=== PATIENT | male | born 1960 | race Two or more races ===

== ENCOUNTER 2021-12-27 16:44 | Outpatient (CLI) | payer OTHER | END 2021-12-27 16:51 | disposition home or self-care (01) | LOC: LAB 16:44 | PROVIDERS: ATTEND Urology | DX: R97.20 Elevated prostate specific antigen [PSA] (principal) ==

== ENCOUNTER 2022-02-08 08:11 | Outpatient (CLI) | payer OTHER | END 2022-02-08 08:12 | disposition home or self-care (01) | LOC: LAB 08:11 | DX: N18.31 Chronic kidney disease, stage 3a (principal); N25.81 Secondary hyperparathyroidism of renal origin; E55.9 Vitamin D deficiency, unspecified; E11.22 Type 2 diabetes mellitus with diabetic chronic kidney disease; R80.1 Persistent proteinuria, unspecified ==

== ENCOUNTER → 2022-02-08 | Outpatient (CLI) | payer OTHER | END | disposition home or self-care (01) | LOC: SONOGRAMA 10:07 | DX: N18.31 Chronic kidney disease, stage 3a (principal) ==

== ENCOUNTER 2022-02-27 06:52 | Outpatient (CLI) | payer OTHER | END 2022-02-27 06:54 | disposition home or self-care (01) | LOC: LAB 06:52 | DX: R97.20 Elevated prostate specific antigen [PSA] (principal); N40.1 Benign prostatic hyperplasia with lower urinary tract symptoms; N52.9 Male erectile dysfunction, unspecified ==

== ENCOUNTER → 2022-03-24 08:28 | Outpatient (CLI) | payer OTHER | END | disposition home or self-care (01) | LOC: LAB 08:28 | PROVIDERS: ATTEND Radiology Diagnostic Radiology | DX: R10.10 Upper abdominal pain, unspecified (principal) ==

== ENCOUNTER 2022-03-27 07:41 | Outpatient (CLI) | payer OTHER | END 2022-03-27 07:56 | disposition home or self-care (01) | LOC: TOM 07:41 | DX: R97.20 Elevated prostate specific antigen [PSA] (principal); N40.1 Benign prostatic hyperplasia with lower urinary tract symptoms; N52.9 Male erectile dysfunction, unspecified ==

== ENCOUNTER 2022-05-18 07:03 | Outpatient (CLI) | payer OTHER | END 2022-05-18 07:04 | disposition home or self-care (01) | LOC: LAB 07:03 | DX: R97.20 Elevated prostate specific antigen [PSA] (principal) ==

== ENCOUNTER 2022-07-28 06:56 | Outpatient (CLI) | payer OTHER | END 2022-07-28 07:01 | disposition home or self-care (01) | LOC: LAB 06:56 | DX: N18.1 Chronic kidney disease, stage 1 (principal); R80.9 Proteinuria, unspecified ==

== ENCOUNTER 2022-10-05 06:18 | Outpatient (CLI) | payer OTHER | END 2022-10-05 06:25 | disposition home or self-care (01) | LOC: LAB 06:18 | PROVIDERS: ATTEND General Practice | DX: E03.9 Hypothyroidism, unspecified (principal); I10 Essential (primary) hypertension; E78.2 Mixed hyperlipidemia; D40.0 Neoplasm of uncertain behavior of prostate ==

== ENCOUNTER 2022-12-19 06:28 | Outpatient (CLI) | payer OTHER ==
[2022-12-19 07:25] LABS: URINE APPEARANCE Clear; URINE BILIRRUBIN Negative (NEGATIVE); URINE BLOOD Negative; URINE COLOR Yellow; URINE GLUCOSE Negative (NEGATIVE); URINE LEUKOCYTE Negative; URINE NITRATE Negative; URINE PROTEIN Negative (NEGATIVE); URINE UROBILINOGEN 0.2 E.U./dl
[2022-12-19 07:28] LABS: URINE EPITHELIAL CELLS 2.6 uL (0.0-38.8); URINE WBC 4.1 uL (0.0-23.2)
[2022-12-19 08:11] LABS: URINE BACTERIA 2.5 uL (0.0-1933); URINE RBC 0.4 uL (0.0-20.8)
== END 2022-12-19 06:29 | disposition home or self-care (01) ==
LOC: LAB 06:28
DX: N18.2 Chronic kidney disease, stage 2 (mild) (principal); R80.1 Persistent proteinuria, unspecified

== ENCOUNTER 2023-03-20 06:15 | Outpatient (CLI) | payer OTHER ==
[2023-03-20 07:12] LABS: HEMATOCRIT 40.6 % (39.0-48.0); HEMOGLOBIN 13.4 g/dL (13-16.00); MEAN CELL VOLUME 77.6 fL (80.0-100.00); MEAN CORPUSCULAR HEMOGLOBIN 25.6 pg (27.00-32.0); PLATELET COUNT 168 K/uL (150-450); RED BLOOD COUNT 5.23 M/uL (4.00-6.00); RED CELL DISTRIBUTION WIDTH 14.5 % (11.5-14.5)
[2023-03-20 07:13] LABS: PH,URINE 5.5 (5.0-8.0); URINE APPEARANCE Clear; URINE BILIRRUBIN Negative (NEGATIVE); URINE BLOOD Negative; URINE COLOR Yellow; URINE GLUCOSE Negative (NEGATIVE); URINE LEUKOCYTE Negative; URINE NITRATE Negative; URINE PROTEIN Negative (NEGATIVE); URINE UROBILINOGEN 0.2 E.U./dl
[2023-03-20 07:17] LABS: URINE BACTERIA 6.2 uL (0.0-1933); URINE WBC 1.9 uL (0.0-23.2)
[2023-03-20 07:25] LABS: URINE EPITHELIAL CELLS 0.6 uL (0.0-38.8); URINE RBC 0.8 uL (0.0-20.8)
[2023-03-20 07:47] LABS: ALBUMIN 3.7 gm/dL (3.4-5.0); BILIRUBIN TOTAL 0.36 mg/dL (0.3-1.2); CALCIUM 8.8 mg/dL (8.5-10.1); CHOL HDL RATIO 2.9 (0-5.0); CREATININE SERUM 0.99 mg/dL (0.70-1.30); GFR 75.87; GLOBULINA 3.4 G/DL (2.4-3.5); POTASSIUM 3.8 mEq/L (3.5-5.1); TOTAL PROTEIN 7.1 gm/dL (6.4-8.2); TSH 2.49 uIU/mL (0.358-3.74)
[2023-03-20 07:49] LABS: PROSTATIC SPECIFIC ANTIGEN 15.6 NG/ML (0.010-4.00)
== END 2023-03-20 13:02 | disposition home or self-care (01) ==
LOC: LAB 06:15
PROVIDERS: ATTEND General Practice
DX: E03.9 Hypothyroidism, unspecified (principal); I10 Essential (primary) hypertension; Z12.10 Encounter for screening for malignant neoplasm of intestinal tract, unspecified; N39.0 Urinary tract infection, site not specified; E11.9 Type 2 diabetes mellitus without complications; E78.5 Hyperlipidemia, unspecified; C61 Malignant neoplasm of prostate

== ENCOUNTER 2023-03-21 06:52 | Outpatient (CLI) | payer OTHER ==
[2023-03-21 13:19] LABS: ob NEGATIVE (NEGATIVE)
== END 2023-03-21 06:53 | disposition home or self-care (01) ==
LOC: LAB 06:52
PROVIDERS: ATTEND General Practice
DX: E03.9 Hypothyroidism, unspecified (principal); I10 Essential (primary) hypertension; Z12.10 Encounter for screening for malignant neoplasm of intestinal tract, unspecified; N39.0 Urinary tract infection, site not specified; E11.9 Type 2 diabetes mellitus without complications; E78.5 Hyperlipidemia, unspecified; C61 Malignant neoplasm of prostate

== ENCOUNTER 2023-10-05 06:45 | Outpatient (CLI) | payer OTHER | END 2023-10-05 06:50 | disposition home or self-care (01) | LOC: LAB 06:45 | PROVIDERS: ATTEND General Practice | DX: C61 Malignant neoplasm of prostate (principal) ==

== ENCOUNTER 2023-12-24 06:27 | Outpatient (CLI) | payer OTHER ==
[2023-12-24 07:17] LABS: HEMOGLOBIN 13.3 g/dL (13-16.00); MEAN CELL VOLUME 79.8 fL (80.0-100.00); MEAN CORPUSCULAR HEMOGLOBIN 25.8 pg (27.00-32.0); MEAN CORPUSCULAR HGB CONC 32.4 g/dl (32.0-36.0); PLATELET COUNT 162 K/uL (150-450); RED BLOOD COUNT 5.14 M/uL (4.00-6.00); RED CELL DISTRIBUTION WIDTH 13.9 % (11.5-14.5)
[2023-12-24 07:20] LABS: PH,URINE 5.5 (5.0-8.0); URINE APPEARANCE Clear; URINE BILIRRUBIN Negative (NEGATIVE); URINE BLOOD Negative; URINE COLOR Yellow; URINE GLUCOSE Negative (NEGATIVE); URINE KETONE Trace (NEGATIVE); URINE LEUKOCYTE Negative; URINE NITRATE Negative; URINE PROTEIN 30 (NEGATIVE); URINE UROBILINOGEN 0.2 E.U./dl
[2023-12-24 07:24] LABS: URINE BACTERIA 11.3 uL (0.0-1933); URINE EPITHELIAL CELLS 3.8 uL (0.0-38.8)
[2023-12-24 08:32] LABS: ALBUMIN 3.7 gm/dL (3.4-5.0); BILIRUBIN TOTAL 0.77 mg/dL (0.3-1.2); CREATININE SERUM 0.86 mg/dL (0.70-1.30); GFR 89.25; GLOBULINA 3.5 G/DL (2.4-3.5); POTASSIUM 3.55 mEq/L (3.5-5.1); TOTAL PROTEIN 7.2 gm/dL (6.4-8.2); TSH 3.2 uIU/mL (0.358-3.74)
[2023-12-24 08:40] LABS: PROSTATIC SPECIFIC ANTIGEN 17.1 NG/ML (0.010-4.00)
== END 2023-12-24 06:33 | disposition home or self-care (01) ==
LOC: LAB 06:27
DX: C61 Malignant neoplasm of prostate (principal); I10 Essential (primary) hypertension; E03.9 Hypothyroidism, unspecified; D50.9 Iron deficiency anemia, unspecified; R63.4 Abnormal weight loss

== ENCOUNTER 2024-06-03 06:13 | Outpatient (CLI) | payer OTHER ==
[2024-06-03 07:00] LABS: HEMATOCRIT 41.9 % (39.0-48.0); HEMOGLOBIN 13.3 g/dL (13-16.00); MEAN CELL VOLUME 79.8 fL (80.0-100.00); MEAN CORPUSCULAR HEMOGLOBIN 25.4 pg (27.00-32.0); MEAN CORPUSCULAR HGB CONC 31.8 g/dl (32.0-36.0); PLATELET COUNT 131 K/uL (150-450); RED BLOOD COUNT 5.25 M/uL (4.00-6.00); RED CELL DISTRIBUTION WIDTH 14.2 % (11.5-14.5)
[2024-06-03 07:04] LABS: PH,URINE 6.5 (5.0-8.0); URINE APPEARANCE Clear; URINE BILIRRUBIN Negative (NEGATIVE); URINE BLOOD Negative; URINE COLOR Yellow; URINE GLUCOSE Negative (NEGATIVE); URINE KETONE Negative (NEGATIVE); URINE LEUKOCYTE Negative; URINE NITRATE Negative; URINE PROTEIN Negative (NEGATIVE); URINE UROBILINOGEN 0.2 E.U./dl
[2024-06-03 07:05] LABS: URINE EPITHELIAL CELLS 1.8 uL (0.0-38.8); URINE RBC 2.6 uL (0.0-20.8); URINE WBC 2.2 uL (0.0-23.2)
[2024-06-03 07:18] LABS: URINE BACTERIA 3.6 uL (0.0-1933)
[2024-06-03 08:07] LABS: ob NEGATIVE (NEGATIVE)
[2024-06-03 08:11] LABS: ALBUMIN 3.8 gm/dL (3.4-5.0); BILIRUBIN TOTAL 0.85 mg/dL (0.3-1.2); CALCIUM 8.9 mg/dL (8.5-10.1); CREATININE SERUM 0.89 mg/dL (0.70-1.30); GFR 85.52; GLOBULINA 3.2 G/DL (2.4-3.5); POTASSIUM 3.6 mEq/L (3.5-5.1); TSH 2.68 uIU/mL (0.358-3.74)
[2024-06-03 08:35] LABS: CHOL HDL RATIO 2.3 (0-5.0)
[2024-06-03 08:36] LABS: PROSTATIC SPECIFIC ANTIGEN 17.3 NG/ML (0.010-4.00)
[2024-06-03 11:58] LABS: VITAMIN D3 25 HYDROXY 70.8 ng/ml (30-120)
== END 2024-06-03 06:18 | disposition home or self-care (01) ==
LOC: LAB 06:13
DX: E03.9 Hypothyroidism, unspecified (principal); K92.1 Melena; E08.36 Diabetes mellitus due to underlying condition with diabetic cataract; C61 Malignant neoplasm of prostate; D51.9 Vitamin B12 deficiency anemia, unspecified; E55.9 Vitamin D deficiency, unspecified; I10 Essential (primary) hypertension; N39.9 Disorder of urinary system, unspecified; E78.2 Mixed hyperlipidemia